=== PATIENT | female | born 1950 | race Caucasian/White ===

== ENCOUNTER 2023-02-27 07:07 | Observation (INO) ==
--- NOTE | 2023-02-05 12:39 | PAT Medication Instructions ---
Medication Instructions Date of Service February 05, 2023 Home Medications aspirin 81 mg capsule 81 mg PO QAM azathioprine 50 mg tablet 50 mg PO QAM calcium carb 333 mg-vit D3 133 unit-mag ox 133 mg-zinc oxide 5 mg tab 3 tab PO HS celecoxib 100 mg capsule 100 mg PO BID cholecalciferol (vitamin D3) 25 mcg (1,000 unit) tablet (Vitamin D3) 25 mcg PO QAM cyanocobalamin (vitamin B-12) 2,500 mcg sublingual tablet (Vitamin B-12) 2,500 mcg sublingual QAM potassium 99 mg tablet 99 mg PO QAM pyridoxine (vitamin B6) 100 mg tablet (Vitamin B-6) 100 mg PO QAM ASK your surgeon for instructions celecoxib 100 mg capsule 100 mg PO BID ASK your prescriber and surgeon azathioprine 50 mg tablet 50 mg PO QAM DO NOT take the morning of surgery cholecalciferol (vitamin D3) 25 mcg (1,000 unit) tablet (Vitamin D3) 25 mcg PO QAM cyanocobalamin (vitamin B-12) 2,500 mcg sublingual tablet (Vitamin B-12) 2,500 mcg sublingual QAM potassium 99 mg tablet 99 mg PO QAM pyridoxine (vitamin B6) 100 mg tablet (Vitamin B-6) 100 mg PO QAM Take morning of surgery With a small sip of water, OTHERWISE NOTHING TO EAT OR DRINK AFTER MIDNIGHT: aspirin 81 mg capsule 81 mg PO QAM (continue as normal unless told otherwise by surgeon) Take evening before surgery calcium carb 333 mg-vit D3 133 unit-mag ox 133 mg-zinc oxide 5 mg tab 3 tab PO HS Other Notes If you have any questions please call us at [phone] or [phone] or [phone] or [phone]
--- NOTE | 2023-02-07 12:10 | Anesthesiology Consultation ---
Date of Service February 07, 2023 Assessment & Plan (1) Encounter for pre-operative examination: Chart Review Chart Review: Acceptable Risk for Surgery (pending response to optimization note re: updating ECHO for murmur and leukoctyosis ) and Patient NOT seen in Pre Admission Testing - Send optimization note to PCP re: ECHO/murmur and leukocytosis () Pt currently scheduled as 23 hours observation. If surgeon decides to change pa tient to Same Day Joint, patient would be acceptable risk for TKA, pending patient is motivated, has good support and surgeon's office completes [facility] Program preop requirements. Per PAT appt on 02/07/23, patient denies any recent travel or large group activities. Pt is vaccinated for Covid. Will leave to surgeon's discretion if preop Covid testing needed. Educated on importance of using Covid precautions one week prior to surgery Teaching & Discussion Pre-Anesthesia Teaching/Discussion Notes: Instructed NPO after midnight before surgery,except medications with 15 cc of water. Medication instructions provided according to the PAT guidelines. History Surgery Operation Date: 02/27/23 12:40 Proposed Procedures p Right Total Knee Arthroplasty, Possible Lateral Release - Russell Londono MD Height/Weight Height: 4 ft 9 in Weight: 78.2 kg Allergies Allergy/AdvReac Type Severity Reaction Status Date / Time No Known Drug Allergies Allergy Unknown NONE Verified 02/05/23 11:46 Medications Home Medications Medication Instructions Recorded Confirmed Last Taken aspirin 81 mg capsule 81 mg PO QAM 02/05/23 02/05/23 Unknown azathioprine 50 mg tablet 50 mg PO QAM 02/05/23 02/05/23 Unknown calcium carb 333 mg-vit D3 133 3 tab PO HS 02/05/23 02/05/23 Unknown unit-mag ox 133 mg-zinc oxide 5 mg tab celecoxib 100 mg capsule 100 mg PO BID 02/05/23 02/05/23 Unknown cholecalciferol (vitamin D3) 25 25 mcg PO QAM 02/05/23 02/05/23 Unknown mcg (1,000 unit) tablet (Vitamin D3) cyanocobalamin (vitamin B-12) 2,500 mcg sublingual QAM 02/05/23 02/05/23 Unknown 2,500 mcg sublingual tablet (Vitamin B-12) potassium 99 mg tablet 99 mg PO QAM 02/05/23 02/05/23 Unknown pyridoxine (vitamin B6) 100 mg 100 mg PO QAM 02/05/23 02/05/23 Unknown tablet (Vitamin B-6) Past Medical History Medical History Autoimmune hepatitis reason for azathioprine Follows with specialist in [place] - no current issues CLL (chronic lymphocytic leukemia) Dx'ed 2010- under observation Dr. Winters History of kidney stones No current issues Exercise / Class Metabolic Activity II 4-5 Yardwork/Stairs/Walk up hill (one flight of stairs - no chest pain or SOB ) Past Family History Family History Other No family history of adverse response to anesthesia Past Surgical History Surgical History History of bilateral tubal ligation History of colonoscopy History of dilatation and curettage History of repair of right rotator cuff History of right shoulder replacement History of tooth extraction Past Anesthesia History No Hx of Anesthesia Complications and No Family Hx of Anesthesia Complications History of PONV No Hx of PONV and No Hx of Motion Sickness Social History Smoking Status: Never smoker Do You Dip or Chew Tobacco: No Hx Alcohol Use: No Hx Substance Use: No substance use type: does not use Review of Systems Snoring - no witnessed apnea - no hx of sleep study Patient denies chest pain, shortness of breath, dyspnea on exertion, reflux, cough, wheezing, palpitations. No hx of seizures, stroke, CA. No hx of blood clots or blood transfusions Physical Exam Vital Signs VITALS BP 148/71 P 92 TEMP 98.3 SP02 95% RESP 16 Constitutional no acute distress ENMT Mouth: no TMJ clicking Thyromental Distance: > or= 3.5 Finger Breadths (3.5) Mallampati Class: II Missing molars Neck + limited neck extension (minimal) Respiratory normal respiratory effort; no respiratory distress Auscultation: lungs clear to auscultation bilaterally; no wheezes Cardiovascular Rate/Rhythm: regular rate and regular rhythm Heart Sounds: + murmur (II/ murmur ) Vessels: no carotid bruit Musculoskeletal Spine: no pain with cervical ROM Extremities: extremities normal to inspection Psychiatric Orientation: alert Lab Results Anesthesia Preop Results Results Anesthesia Widget: WBC 49.62 K/ul (4.8-10.8) H* 02/07/23 Hgb 13.7 g/dl (12.0-16.0) 02/07/23 Hct 41.3 % (37.0-47.0) 02/07/23 Plt 229 K/uL (130-400) 02/07/23 Na 141 mmol/L (136-145) 02/07/23 K 4.8 mmol/L (3.5-5.1) 02/07/23 Cl 104 mmol/L (98-107) 02/07/23 CO2 28 mmol/L (21-32) 02/07/23 BUN 13 mg/dl (6-23) 02/07/23 Creat 0.73 mg/dl (0.6-1.2) 02/07/23 Glucose Level 138 mg/dl (70-99(Fasting)) H 02/07/23 PT 10.3 Seconds (9.0-12.0) 02/07/23 PTT 24.2 Seconds (21.0-31.0) 02/07/23 INR 0.9 (0.9-1.1) 02/07/23 Urine Color Yellow 02/07/23 Urine Appearance Clear (Clear) 02/07/23 Urine pH 7.5 (4.5-7.5) 02/07/23 Urine Specific [place] 1.006 (1.000-1.030) 02/07/23 Urine Protein Negative (Negative) 02/07/23 Urine Glucose (UA) Negative (Negative) 02/07/23 Urine Ketones Negative (Negative) 02/07/23 Urine Blood Negative (Negative) 02/07/23 Urine Nitrite Negative (Negative) 02/07/23 Urine Bilirubin Negative (Negative) 02/07/23 Urine Urobilinogen Negative (Negative) 02/07/23 Urine Leukocyte Esterase Negative (Negative) 02/07/23 Blood Type O Positive 02/07/23 Antibody Screen NEGATIVE 02/07/23 Testing Laboratory Results Leukocytosis - hx of CLL 02/07/23= AST: 25 ALT: 21 ALK PHOS: 77 Electrocardiogram Date: 02/07/23 Findings: + NSR @ (88bpm ) Normal EKG per cardio Chest X-Ray Date: 02/07/23 FINDINGS: Incidental note is made of a right shoulder arthroplasty and dextroscoliosis of the thoracic spine. Lung volumes are normal. Lungs are clear. There is no pneumothorax or pleural effusion. Cardiac size is normal. Mediastinal contours are normal. There is no evidence for pulmonary edema. IMPRESSION: No acute cardiopulmonary findings. COVID-19 Risk Screen Screening Information COVID-19 Screen Date: 02/07/23 Exposure 21 Days Family/Household +COVID Last 21 Days: No Exposure 10 Days Any COVID Exposure Last 10 Days: No Symptoms Last 10 Days Experienced COVID Sx Last 10 Days: No + COVID 0-90 Days COVID + in Last 0-90 Days: No Risk Plan COVID Risk Plan: No Risk Identified Patient Education COVID Preop Screening Education Complete: Yes
--- NOTE | 2023-02-17 08:42 | History & Physical Report ---
Date of Service February 17, 2023 Assessment & Plan (1) Primary osteoarthritis of right knee: Plan: Treatment options discussed with the patient. She has failed conservative measures and would like to proceed with surgical invention. Risks, benefits and alternatives to surgery including but not limited to infection, DVT, pain, stiffness, need for revision surgery, damage to blood vessels, damage to nerves, PE, , were discussed with the patient and they wish to proceed. Plan for right total knee arthroplasty scheduled for February 27 at [facility] with Dr. Londono. We we will plan on aspirin 81 mg twice daily for 1 month postop for DVT prophylaxis. Plan outpatient physical therapy. Questions answered. Patient will follow-up postop. History of Present Illness Chief Complaint: Right knee pain Primary Care Provider: NO PCP 72-year-old female with past medical history significant for CLL who presents with ongoing right knee pain. Pain is interfering with patient's daily activities. She has failed conservative measures and would like to proceed with surgical invention. Patient denies headaches, sweats, fevers, chills, double vision, blurred vision, cough, sore throat, dysphagia, chest pain, sob, wheezing, n/v/d/c, numbness, tingling, fatigue, urinary symptoms, mood disorders. ROS positive for right knee pain and stiffness. Allergies Allergy/AdvReac Type Severity Reaction Status Date / Time No Known Drug Allergies Allergy Unknown NONE Verified 02/05/23 11:46 Home Medications Medication Instructions Recorded Confirmed Type aspirin 81 mg capsule 81 mg PO QAM 02/05/23 02/05/23 History azathioprine 50 mg tablet 50 mg PO QAM 02/05/23 02/05/23 History calcium carb 333 mg-vit D3 133 3 tab PO HS 02/05/23 02/05/23 History unit-mag ox 133 mg-zinc oxide 5 mg tab celecoxib 100 mg capsule 100 mg PO BID 02/05/23 02/05/23 History cholecalciferol (vitamin D3) 25 25 mcg PO QAM 02/05/23 02/05/23 History mcg (1,000 unit) tablet (Vitamin D3) cyanocobalamin (vitamin B-12) 2,500 mcg sublingual QAM 02/05/23 02/05/23 History 2,500 mcg sublingual tablet (Vitamin B-12) potassium 99 mg tablet 99 mg PO QAM 02/05/23 02/05/23 History pyridoxine (vitamin B6) 100 mg 100 mg PO QAM 02/05/23 02/05/23 History tablet (Vitamin B-6) Past Med/Surg History Medical History Autoimmune hepatitis reason for azathioprine Follows with specialist in [place] - no current issues CLL (chronic lymphocytic leukemia) Dx'ed 2010- under observation Dr. Winters History of kidney stones No current issues Surgical History History of bilateral tubal ligation History of colonoscopy History of dilatation and curettage History of repair of right rotator cuff History of right shoulder replacement History of tooth extraction Family History Other No family history of adverse response to anesthesia Social History Smoking Status: Never smoker Second Hand Exposure: No; Do You Dip or Chew Tobacco: No; Hx Alcohol Use: No Hx Substance Use: No Preferred Language: Korean Communication Ability: Effective Transportation Engineering Technician Required: No Beliefs That Will Affect Care: None Current Living Situation: Spouse Feels Safe at Home: Yes Assistive Devices: Glasses Review of Systems All systems reviewed & are unremarkable except as noted in HPI & below Physical Exam Constitutional: well developed and well nourished; no acute distress Eyes: PERRL, conjunctivae normal, anicteric sclerae ENMT: external ear and nose normal, oropharynx normal Neck: trachea midline, no thyromegaly Respiratory: normal respiratory effort, lungs clear to auscultation Cardiovascular: RRR, no murmur, no edema Musculoskeletal: Right knee: Range of motion is 0-120 degrees. There is a valgus alignment. Moderate knee effusion. Tenderness to lateral joint line and lateral patellar facet. Conchita's is guarded. Stable valgus and varus stress test. Skin: no rashes, warm and dry Neurologic: patellar DTR's 2+ bilat, sensation intact Psychiatric: A+Ox3, euthymic affect Results & Data Diagnostic Findings Right knee radiographs demonstrate significant arthritis with [id number] lateral patellofemoral compartment with lateral patellar tilt. There is a valgus alignment to her knee with moderate lateral compartment arthritic changes. There is periarticular osteophytes.
[~2023-02-27 07:07] MED LIST: ACETAMINOPHEN 500 MG TAB PO SCH; BUPIVACAINE 0.25% PF 30 ML VIAL ONE; BUPIVACAINE 0.5 % 5 MG/1 ML PF 10ML VIAL ONE; CeleBREX 200 MG CAP PO SCH; DEXAMETHASONE SOD INJ 4 MG/ML VIAL ONE; EPINEPHrine INJ 1 MG/ML AMP ONE; FAMOTIDINE 20 MG TAB PO SCH; GABAPENTIN 300 MG CAP PO SCH; LR 15ML/HR IV SCH; METOCLOPRAMIDE HCL 10 MG TABLET PO SCH; ROPIVACAINE 0.5% HCL/PF 150 MG, BUPIVACAINE 0.75% MPF 20 ML, EPINEPHrine 30MG/30ML (OR ... INSTIL SCH; TRANEXAMIC ACID 1,000 MG **IV Intra-op IV SCH; TRANEXAMIC ACID 1,000 MG **IV Pre-op IV SCH; ceFAZolin 2000MG 2,000 MG/15 ML SYR IV SCH; dexAMETHasone 4 MG TAB PO SCH
[2023-02-27] MEDS ORDERED: LACTATED RINGER'S 1,000 ML IV SCH (08:00)
--- NOTE | 2023-02-27 08:45 | History & Physical Bridge Note ---
Date of Service February 27, 2023 History & Physical Bridge Note I have examined the patient, reviewed the History & Physical and in the interval since the performance of the History & Physical I have noted the following changes of clinical significance: no changes noted
[2023-02-27] MEDS ORDERED: ATROPINE SULFATE 0.1 MG/ML 10ML SYR IV PRN (09:14)
[2023-02-27] MEDS ORDERED: ePHEDrine sulfate 50 MG/ML AMP IV PRN (09:14)
[2023-02-27] MEDS ORDERED: fentaNYL citrate PF 100 MCG/2 ML VIAL IV PRN (09:14)
[2023-02-27] MEDS ORDERED: ONDANSETRON INJ 2 MG/ML 2 ML VIAL IV PRN ×2 (09:14→13:32)
[2023-02-27] MEDS ORDERED: PROMETHAZINE HCL 6.25 MG in SODIUM CHLORIDE 0.9% 50 ML IV PRN (09:14)
[2023-02-27] MEDS ORDERED: fentaNYL citrate PF 100 MCG/2 ML VIAL ONE (09:40)
[2023-02-27] MEDS ORDERED: ORTHO JOINT ANESTHETIC ONE (09:40)
[2023-02-27] MEDS ORDERED: MIDAZOLAM HCL 1 MG/ML 2ML VIAL ONE (09:40)
[2023-02-27] MEDS ORDERED: KETAMINE 50 MG/5 ML SYRINGE ONE (10:22)
[2023-02-27] MEDS ORDERED: PROPOFOL IV EMULSION 10 MG/ML 100 ML VIAL IV ONE (12:00)
[2023-02-27] MEDS ORDERED: DEXAMETHASONE SOD INJ 4 MG/ML VIAL ONE (12:00)
[2023-02-27] MEDS ORDERED: ONDANSETRON INJ 2 MG/ML 2 ML VIAL ONE (12:00)
[2023-02-27] MEDS ORDERED: ePHEDrine sulfate 50 MG/ML SYR ONE (12:01)
--- NOTE | 2023-02-27 12:07 | Operative Report ---
Post Operative Report Pre & Post Diagnosis Operation Date: 02/27/23 09:50 Pre-Op Diagnosis: Right Knee Osteoarthritis, patellofemoral malalignment Post-Op Diagnosis: Right knee osteoarthritis, patellofemoral malalignment I identified the patient and participated in the time-out.: Yes Procedure Operation Date: 02/27/23 09:50 Actual Procedures p Right Total Knee Arthroplasty, Lateral Release(Right), shamika Acticoat superficial wound VAC- Russell Londono MD Surgeon Russell Londono MD Senior Foreman Zion WOODWARD Estimated Blood Loss 5 Findings Consistent with Post-Op Diagnosis Specimens Bone cuts Drains 2 Hemovac Anesthesia Type MAC Spinal Regional Complications none Disposition Disposition: Recovery Room Indications 72-year-old female with bilateral end-stage osteoarthritis of the patellofemoral joint but also has some other tricompartmental changes. She has patellofemoral malalignment with lateral tracking patella [id number] some bone loss patella Description of Procedure Patient was taken to the operating room placed supine on the operating table and anesthetized under spinal MAC regional block anesthesia. Exam under anesthesia demonstrated some minor hyperextension otherwise full range of motion no instability but a moderately large effusion and lateral tracking patella patellofemoral crepitation which is marked. A pneumatic tourniquet was placed about the thigh of the right lower extremity. The right lower extremity was prepped and draped in usual sterile fashion. The leg was elevated exsanguinated with an Esmarch bandage and the pneumatic tourniquet was raised to 325 mm mercury. An anterior incision was made across the right knee. The skin was incised longitudinally subcutaneous flaps were elevated and an incision was made through the medial retinaculum extending up into the mid third of the quadriceps tendon and extended down to the medial tibial tubercle. Intra-articular findings demonstrated tricompartmental osteoarthritis [id number] patellofemoral joint with lateral alignment of the patella lateral tracking the patella. There was degeneration of the ACL but intact ACL. There was degenerative lateral meniscus tear evidence of calcification of the lateral meniscus probable calcium pyrophosphate disease versus steroid deposition. There was grade 4 lesion of the medial femoral condyle grade 3 lesion lateral femoral condyle hypoplastic lateral femoral condyle. There was bone loss of the patella with bone loss along the lateral facet with a relatively thinner lateral facet than the medial side due to the bone wear. The knee was exposed by excising the infrapatellar fat pad, excising the meniscal remnants and anterior cruciate ligament. Any inflamed synovial tissue was resected. The fat pad over the anterior femur was resected for placement of the component in that area. The lateral synovial bands were released. The femur was exposed. The custom femoral cutting block was pinned in position. The distal femoral cutting block was applied. The distal femoral cut was made with the oscillating saw. The size 7, 4-in-1 cutting block was placed. The anterior and posterior chamfer cuts were made. The knee was extended and a subperiosteal peel lateral release was performed around the patella. The patella width was measured and width was reproduced using freehand cut technique. The 29 millimeter symmetrical patella was used. 3 drill holes are made for the pegs. The tibia was exposed. A custom tibial cutting block was positioned and drill holes were made for the cutting guide. Cutting guide was placed and the proximal cut was made with the oscillating saw. All osteophytes were resected. The lamina machine heel seat fitter was used to assess ligamentous balance and the ligaments were balanced in extension and flexion. No releases were required. The tibia was reexposed and measured for a size C tibial component. This was externally rotated in line with the tibial tubercle and the fixation pins were drilled. The proximal tibia was fashioned with the drill and punch. The size 7 CR femoral trial was inserted. The trial MC inserts were used. The 10 mm insert gave balanced ligaments through full range of motion. The patella tracked centrally tracking until this reason we did a lateral release leaving the synovium intact. In maximum flexion there was some late slight lift off and tilting. And preserving the geniculate vessels. The trials were removed. The orthomix anesthetic cocktail was injected per protocol. The knee was then copiously irrigated with pulsatile lavage saline solution. The final components were cemented with Refobacin bone cement. The final components were Christiano persona 7 narrow CR right femoral component, C righ t tibial component, 10 mm MC tibial polyethylene and a 29 mm symmetrical all polyethylene patella. After the cement cured with the knee in full extension the Betadine soak was used per protocol. The knee joint was copiously irrigated with pulsatile lavage saline solution . 2 drains were brought out laterally and connected to a Hemovac. The quadriceps tendon and medial retinaculum were closed with interrupted [id number] #1 Vicryl sutures. The knee was taken through a full range of motion which was 0 through 130 degrees and the repair was secure. The subcutaneous tissues were closed with 2-0 Vicryl sutures and skin was closed with harman.A Shamika and Acticoat superficial wound VAC was applied and the patient tolerated the procedure well. Zion WOODWARD my physician assistant terminal manager participated as family medicine physician assistant and was an integral part in all aspects of the procedure, he assisted in soft tissue retraction, instrument management ,leg positioning, the closure, application superficial wound VAC and will participate in the postoperative care of the patient. I attest to the content of the Intraoperative Record and any orders documented therein. Any exceptions are noted below.
[2023-02-27] MEDS ORDERED: METOPROLOL TARTRATE 1 MG/ML VIAL IV ONE (12:19)
--- NOTE | 2023-02-27 13:07 | XRay Report ---
XR knee RT 1 or 2V routine CLINICAL HISTORY: Postoperative evaluation. COMPARISON: None FINDINGS: Alignment of the total right knee arthroplasty is anatomic. There is no periprosthetic fra cture or unexpected radiopaque foreign body. There are drains and skin harman. IMPRESSION: Expected findings following total right knee arthroplasty. ACT 112: Negative or not required by law. Electronically signed by: Amando Riley M.D. 02/27/2023 1:06 PM
[2023-02-27] MEDS ORDERED: MAGNESIUM HYDROXIDE SUSP 30 ML UDC PO PRN (13:32)
[2023-02-27] MEDS ORDERED: diphenhydrAMINE 50 MG/ML VIAL IV PRN (13:32)
[2023-02-27] MEDS ORDERED: KETOROLAC TROMETHAMINE 15 MG/ML VIAL IV PRN (13:32)
[2023-02-27] MEDS ORDERED: NALOXONE HCL 0.4 MG/1 ML VIAL/CARP IV PRN (13:32)
[2023-02-27] MEDS ORDERED: bisacodyL 10 MG SUPP PR PRN (13:32)
[2023-02-27] MEDS ORDERED: HYDROmorphone INJ 0.5 MG/0.5 ML SYR IV PRN (13:32)
[2023-02-27] MEDS: ACETAMINOPHEN 500 MG TAB PO SCH ×2 (14:34→20:43)
[2023-02-27] MEDS: SODIUM CHLORIDE 0.9% 1000ML 1,000 ML IV SCH (14:34)
--- NOTE | 2023-02-27 15:43 | Anesthesiology Progress Note ---
Date of Service February 27, 2023 Anesthesia Post Procedure Vital Signs Vital Signs: Temp Pulse Pulse Resp BP Pulse Ox O2 Del Method 02/27/23 14:32 36.4 C L 98 H 16 145/77 H 96 Room Air 02/27/23 13:59 36.3 C L 97 H 18 137/77 96 Room Air 02/27/23 13:33 36.3 C L 92 H 18 137/80 97 Room Air 02/27/23 13:20 91 H 18 134/78 95 Room Air 02/27/23 13:10 36.4 C L 92 H 18 146/76 H 93 Room Air 02/27/23 12:50 91 H 16 143/72 H 95 Room Air 02/27/23 12:40 92 H 18 139/70 93 Room Air 02/27/23 13:00 89 20 119/67 96 Room Air 02/27/23 12:30 96 H 20 142/72 H 95 Room Air 02/27/23 12:27 36.1 C L 96 H 14 138/78 95 Room Air 02/27/23 07:49 36.9 C 93 H 18 177/87 H 97 Room Air Pain Intensity Back: Pain Intensity: 2 Right Knee: Pain Intensity: 0 Transfer of Care Handoff Completed per policy Notes Mental Status: alert / awake / arousable Patient Amnestic to Procedure: Yes Nausea / Vomiting: adequately controlled Pain: adequately controlled Airway Patency, RR, SpO2: stable & adequate BP & HR: stable & adequate Hydration State: stable & adequate Anesthetic Complications: no major complications apparent
[2023-02-27] MEDS: oxyCODONE HCL IR 5 MG TAB (IMMEDIATE RELEASE) PO PRN ×2 (15:56→21:29)
--- NOTE | 2023-02-27 17:25 | Hospitalist Consultation ---
Date of Consultation February 27, 2023 Assessment & Plan (1) Status post right knee replacement: -Currently stable -Pain control, perioperative abx, DVT PPX, and IV fluids per the primary team -Agree with am labs, we will follow -Adding daily famotidine for stress ulcer PPX -Thank you for allowing us to participate in the care of this patient, please reach out with any questions or concerns -Medicine will continue to follow (2) Autoimmune hepatitis: -Follows with registered dental hygienist in [place] Q6M -Continue daily Azathioprine tomorrow (3) CLL (chronic lymphocytic leukemia): -Has been stable, currently monitoring with outpatient labs -Follow am CBC Plan The patient was discussed with Dr. Mario at the time of the consult Supervising Physician Co-Signing Physician Notes I personally saw and examined the patient. I verified all rosado points and agree with Han Evans PA-C with the following exceptions and/or additions: 72 year old POD#0 right TKA. EBL 5ml. O/E HS RRR, no murmurs, Chest CTAB, Abdo SNT, NV intact distal to operation site. A/P VTE/Pain/bowel management per primary orthopedic team Noted not prescribed her azathioprine. No medical reason to hold this, can be restarted when ok by surgical team. History of Present Illness Reason for Consultation: Post-op medical management Requesting Physician: Russell Londono MD Attending Physician: Dr. Antwon Mario History of Present Illness Mignon is a 72 year old female with a PMH significant for CLL currently on observation, Autoimmune hepatitis (on Azathioprine), and arthritis who presented to the [facility] OR on 02/27/23 for elective Right Total Knee Arthroplasty with Dr. Londono. Per the operative report, anesthesia was listed as "MAC spinal regional", EBL was listed as 5 cc, and there were no reported intraoperative complications. At the time of the exam the patient was sitting in her bedside recliner, finishing dinner. She states that she is doing "great". She has no pain in the RLE right now and was able to eat without issue. She confirms that she is on the Azathioprine for Autoimmune hepatitis and follows with her Applications Instructor q6m in [place]. She denies recent fever, chills, chest pain, SOB, abd pain, nausea, vomiting, diarrhea, dysuria, hematuria, melena, and recent trauma. Please refer to Dr. Mario's attestation for any changes to the treatment plan Allergies Allergy/AdvReac Type Severity Reaction Status Date / Time No Known Drug Allergies Allergy Unknown NONE Verified 02/27/23 07:47 Home Medications Medication Instructions Recorded Confirmed Type aspirin 81 mg capsule 81 mg PO QAM 02/05/23 02/27/23 History azathioprine 50 mg tablet (Imuran) 50 mg PO QAM 02/05/23 02/27/23 History calcium carb 333 mg-vit D3 133 3 tab PO HS 02/05/23 02/27/23 History unit-mag ox 133 mg-zinc oxide 5 mg tab celecoxib 100 mg capsule (Celebrex) 100 mg PO BID 02/05/23 02/27/23 History cholecalciferol (vitamin D3) 25 25 mcg PO QAM 02/05/23 02/27/23 History mcg (1,000 unit) tablet (Vitamin D3) cyanocobalamin (vitamin B-12) 2,500 mcg sublingual QA 02/05/23 02/27/23 History 2,500 mcg sublingual tablet (Vitamin B-12) potassium 99 mg tablet 99 mg PO QA 02/05/23 02/27/23 History pyridoxine (vitamin B6) 100 mg 100 mg PO [facility] 02/05/23 02/27/23 History tablet (Vitamin B-6) acetaminophen 500 mg tablet 1,000 mg PO Q8 14 days #84 tabs 02/27/23 Rx (Tylenol Extra Strength) aspirin 81 mg tablet,delayed 81 mg PO BID 30 days #60 tabs 02/27/23 Rx release polyethylene glycol 3350 17 gram 17 g PO DAILY PRN constipation #5 02/27/23 Rx oral powder packet (Miralax) ea oxycodone 5 mg tablet 5 mg PO Q4H PRN pain #30 tabs 02/28/23 Rx Patient History Medical History (Updated 02/27/23 @ 17:47 by Han Evans PA-C) Autoimmune hepatitis reason for azathioprine Follows with specialist in [place] - no current issues CLL (chronic lymphocytic leukemia) Dx'ed 2010- under observation Dr. Winters History of kidney stones No current issues Surgical History (Updated 02/27/23 @ 17:47 by Han Evans PA-C) History of bilateral tubal ligation History of colonoscopy History of dilatation and curettage History of repair of right rotator cuff History of right shoulder replacement History of tooth extraction Family History Other No family history of adverse response to anesthesia Social History Smoking Status: Never smoker Second Hand Exposure: No; Do You Dip or Chew Tobacco: No; Tobacco Cessation Education Requested by Patient: No Hx Alcohol Use: No Hx Substance Use: No Preferred Language: Omani Communication Ability: Effective Account Services Specialist Required: No Beliefs That Will Affect Care: None Current Living Situation: Spouse Other Information That Helps Us Care for You: No Feels Safe at Home: Yes Safety Concerns: Feels Safe At This Time Assistive Devices: Glasses Physical Exam Physical Exam: Physical Exam: General: In no acute distress, stated age, well-nourished, good hygiene HEENT: Normocephalic, atraumatic, no scleral icterus, pupils around round, symmetrical, and reactive to light, moist mucus membranes, trachea midline, no thyromegaly Chest/Pulm: No respiratory distress, symmetrical chest expansion, clear breath sounds throughout Cardiac: RRR, no murmurs noted Abdomen: Negative for ascites and bruising, normoactive bowel sounds, soft, non-tender to palpation throughout Musculoskeletal: RLE currently wrapped, with drain in place. Patient with intact sensation and motor function in the BL feet Extremities: Radial, dorsalis pedis, and posterior tibial pulses are intact and symmetrical, no edema noted in the BL LE's Skin: Warm, dry, no rashes , lesions, or scars noted Neuro: Alert and oriented to person, place, month, year, and president, no focal defects, no tremors noted Psych: No acute distress, calm and cooperative during the exam Results & Data Results & Data Vital Signs (Past 12 Hours) Vital Signs Temp Pulse Pulse Resp BP Pulse Ox O2 Del Method 02/27/23 16:30 36.5 C 101 H 16 111/71 96 Room Air 02/27/23 15:30 36.5 C 101 H 18 156/66 H 97 Room Air 02/27/23 14:32 36.4 C L 98 H 16 145/77 H 96 Room Air 02/27/23 13:59 36.3 C L 97 H 18 137/77 96 Room Air 02/27/23 13:33 36.3 C L 92 H 18 137/80 97 Room Air 02/27/23 13:20 91 H 18 134/78 95 Room Air 02/27/23 13:10 36.4 C L 92 H 18 146/76 H 93 Room Air 02/27/23 12:50 91 H 16 143/72 H 95 Room Air 02/27/23 12:40 92 H 18 139/70 93 Room Air 02/27/23 13:00 89 20 119/67 96 Room Air 02/27/23 12:30 96 H 20 142/72 H 95 Room Air 02/27/23 12:27 36.1 C L 96 H 14 138/78 95 Room Air 02/27/23 07:49 36.9 C 93 H 18 177/87 H 97 Room Air Diagnostic Findings Knee X-Ray 02/27/23 12:34 XR knee RT 1 or 2V routine CLINICAL HISTORY: Postoperative evaluation. COMPARISON: None FINDINGS: Alignment of the total right knee arthroplasty is anatomic. There is no periprosthetic fracture or unexpected radiopaque foreign body. There are drains and skin harman. IMPRESSION: Expected findings following total right knee arthroplasty. ACT 112: Negative or not required by law. Electronically signed by: Amando Riley M.D. 02/27/2023 1:06 PM PG Care Time/CCT Total # of Minutes Spent Total Time Spent with Patient: Total time spent is greater than 50% in coordination of care (as documented) at patient's floor/unit and/or counseling patient: Coding [place] [address] IN/OBS CONSULT LVL 3,45M Patient Type Established Medical Decision Making Moderate Complexity Diagnoses Status post right knee replacement Z96.651 Autoimmune hepatitis K75.4 CLL (chronic lymphocytic leukemia) C91.10
[2023-02-27] MEDS: ceFAZolin 2000MG 2,000 MG/15 ML SYR IV SCH (18:20)
[2023-02-27] MEDS: DOCUSATE SODIUM 100 MG CAP PO SCH (20:43)
[2023-02-27] MEDS: ASPIRIN 81 MG ECTAB PO SCH (20:43)
[2023-02-27] MEDS ORDERED: SENNA 8.6 MG TAB PO SCH (21:00)
[2023-02-28] MEDS: ceFAZolin 2000MG 2,000 MG/15 ML SYR IV SCH (02:10)
[2023-02-28] MEDS: SODIUM CHLORIDE 0.9% 1000ML 1,000 ML IV SCH (02:39)
[2023-02-28] MEDS: ACETAMINOPHEN 500 MG TAB PO SCH ×2 (05:28→11:08)
--- NOTE | 2023-02-28 06:31 | Orthopedic Progress Note ---
Date of Service February 28, 2023 Assessment & Plan (1) Primary osteoarthritis of right knee: Plan: Postop day 1 status post right total knee arthroplasty. PT/OT protocols. Weightbearing as tolerated. DVT prophylaxis-aspirin p.o. twice daily, SCDs, LULU ta. Pain management as written. A.m. labs pending DC planning-patient is planning for outpatient PT upon discharge. Admission and Anticipated Discharge Date Admission Date: February 27, 2023 Subjective Postop day 1 Patient sitting in chair at the bedside. No complaints this morning. Pain is controlled. She denies any shortness of breath, chest pain, lightheadedness. She is hoping to go home today. Physical Exam Physical Exam: Dressings are clean, dry, and intact. Calves are soft nontender. Neurovascular is intact. Toes are mobile. She has good dorsiflexion and plantarflexion of the right foot. Hemovac drainage is minimal Results & Data Vital Signs (Past 12 Hours) Vital Signs Temp Pulse Resp BP Pulse Ox O2 Del Method 02/28/23 05:49 36.5 C 91 H 16 120/73 98 Room Air 02/28/23 03:58 36.4 C L 92 H 16 115/66 97 Room Air 02/27/23 21:30 Room Air 02/27/23 22:58 36.4 C L 93 H 16 105/65 97 Room Air 02/27/23 20:01 36.5 C 97 H 16 126/75 96 Room Air
[2023-02-28 06:41] LABS: Hematocrit (blood only) 34.4 % (37.0-47.0); Hemoglobin 10.8 g/dl (12.0-16.0); Mean Corpuscular Hemoglobin 28.4 pg (25.0-34.0); Mean Corpuscular Hgb Conc 31.4 g/dL (32.0-36.0); Mean Corpuscular Volume 90.5 fL (80.0-100.0); Platelet Count 228 K/uL (130-400); RDW Coefficient of Variation 14.5 % (11.5-14.5); RDW Standard Deviation 46.9 fL (36.4-46.3); White Blood Count 83.16 K/ul (4.8-10.8)
[2023-02-28 06:42] LABS: BUN Creatinine Ratio 27.2 (10-20); Calcium 9.4 mg/dl (8.6-10.3); Creatinine Clr Calc Pharmacy 54.1 ml/min; Est GFR (African American) 84.1 ml/min; Est GFR (Non-African American) 72.6 ml/min; Potassium 5.2 mmol/L (3.5-5.1)
[2023-02-28] MEDS: oxyCODONE HCL IR 5 MG TAB (IMMEDIATE RELEASE) PO PRN ×2 (07:03→11:07)
[2023-02-28] MEDS: DOCUSATE SODIUM 100 MG CAP PO SCH (08:11)
--- NOTE | 2023-02-28 08:36 | Hospitalist Progress Note ---
Date of Service February 28, 2023 Assessment & Plan (1) Status post right knee replacement: Plan: POD#1 s/p Right Total Knee Arthroplasty, Lateral Release(Right), pauline Acticoat superficial wound VAC- Russell Londono MD. EBL 5cc Pain control/bowel regimen/PT/OT per primary service DVT proph: ASA 81mg BID WBC elevation--was given 8mg dexamathasone w/ surgery. no infectious symptoms reported and notes she does get elevations w/ stress/surgery/steroids. AFEBRILE BMP reviewed-- kidney function stable -- not on any LUCIA/ARB but K 5.2. Home meds list PO potassium -- would STOP at d/c and f/u PCP Patient wanting to go home today -- discussed given stability/no infecitous symptoms and pain controlled/worked with therapy ok from medicine to dc today (2) Autoimmune hepatitis: Plan: -Follows with headlight assembler in [place] Q6M -Continue daily Azathioprine Outpatient follow up (3) CLL (chronic lymphocytic leukemia): Plan: -Has been stable, currently monitoring with outpatient labs WBC elevation as above, no signs/symptoms infection, likely from steroids Outpt f/u (4) Hyperkalemia: Plan: mild elevation to 5.2 on AM labs. Not on LUCIA/ARB, on PO potassium for jose horses (w/ Mag/zinc) Discussed STOPPING oral K at d/c. No CP/GURU/palpitations/arrtyhmia noted Outpt f/u PCP Plan Hospitalist service will sign off. Please call with any questions/concerns. Admission and Anticipated Discharge Date Admission Date: February 27, 2023 Supervising Physician Co-Signing Physician Notes The patient was not seen by me. The chart was reviewed. Case discussed with CRISSY Dickinson. Agree with assessment and plan Subjective Evaluated this morning, doing well. Pain, controlled with order medications but would like something as just got done a lot of walking. No fevers/chills, chest pain, shortness of breath, abdominal pain, nausea, dysuria. WBC elevation, she notes this happens a lot with stress/surgery. Excited to be more active/weight loss. Had been doing about [address] steps for wedding last year but w/ knee pain has been limited and she is hopeful to get back on track. Hopeful for dc today. Discussed elevated K - she has been taking PO K/mag/zinc before bed with fluids for jose horses which has been helping. Discussed STOPPING oral K and can continue Mag/zinc. Messaged ortho ok for d/c. Questions/concerns addressed at this time. Review of Systems Review of Systems: All systems reviewed & are unremarkable except as noted in HPI & below Physical Exam Physical Exam: General: WD/WN female dressing up in chair, anxious for DC, NAD HEENT: head normocephalic, atraumatic, mmm, trachea midline Resp: CTA, no w/c, on room air CV: RRR, no significant m/r/g, pulses palpable,no calf tenderness GI: +BS, soft/NT MSK/Neuro: dressing/wrap to RIGHT knee c/d/i strength intact bilaterally, sensation intact hemovac scant drainage Psych: AOx3 Skin: warm, dry, well perfused Results & Data Results & Data Vital Signs (Past 12 Hours) Vital Signs Temp Pulse Resp BP Pulse Ox O2 Del Method 02/28/23 05:49 36.5 C 91 H 16 120/73 98 Room Air 02/28/23 03:58 36.4 C L 92 H 16 115/66 97 Room Air 02/27/23 21:30 Room Air 02/27/23 22:58 36.4 C L 93 H 16 105/65 97 Room Air Laboratory Results 02/28/23 02/28/23 Range/Units 06:09 06:09 WBC 83.16 H* (4.8-10.8) K/ul RBC 3.80 L (4.20-5.40) M/uL Hgb 10.8 L (12.0-16.0) g/dl Hct 34.4 L (37.0-47.0) % MCV 90.5 (80.0-100.0) fL MCH 28.4 (25.0-34.0) pg MCHC 31.4 L (32.0-36.0) g/dL RDW Std Deviation 46.9 H (36.4-46.3) fL RDW Coeff of Supriya 14.5 (11.5-14.5) % Plt Count 228 (130-400) K/uL MPV 11.0 (9.4-12.4) fL Sodium 136 (136-145) mmol/L Potassium 5.2 H (3.5-5.1) mmol/L Chloride 104 (98-107) mmol/L Carbon Dioxide 23 (21-32) mmol/L Anion Gap 9 (3-11) BUN 22 (6-23) mg/dl Creatinine 0.81 (0.6-1.2) mg/dl Est Cr Clr Drug Dosing 54.1 ml/min Est GFR ( Amer) 84.1 ml/min Est GFR (Non-Af Amer) 72.6 ml/min BUN/Creatinine Ratio 27.2 H (10-20) Glucose 162 H (70-99(Fasting)) mg/dl Calcium 9.4 (8.6-10.3) mg/dl PG Care Time/CCT Total # of Minutes Spent Total Time Spent with Patient: Total time spent is greater than 50% in coordination of care (as documented) at patient's floor/unit and/or counseling patient: Coding Level of Care Code 00287 SUB INP/OBS CARE 2/35MIN Diagnoses Status post right knee replacement Z96.651 Autoimmune hepatitis K75.4 CLL (chronic lymphocytic leukemia) C91.10 Hyperkalemia E87.5
[2023-02-28] MEDS ORDERED: CHOLECALCIFEROL 1,000 UNITS 25 MCG TAB PO SCH (09:00)
[2023-02-28] MEDS ORDERED: NON-FORMULARY MEDICATION (Potassium 99 mg Tablet) PO SCH (09:00)
[2023-02-28] MEDS ORDERED: MULTIVITAMIN TAB PO SCH (09:00)
[2023-02-28] MEDS ORDERED: CYANOCOBALAMIN (B-12) 2,500 MCG TABLET SL SCH (09:00)
[2023-02-28] MEDS ORDERED: FAMOTIDINE 20 MG TAB PO SCH (09:00)
[2023-02-28] MEDS ORDERED: PYRIDOXINE HCL 50 MG TAB PO SCH (09:00)
[2023-02-28] MEDS: ASPIRIN 81 MG ECTAB PO SCH (09:04)
--- NOTE | 2023-03-05 08:46 | Discharge Summary ---
Date of Service March 05, 2023 Admission HPI Per Admitting Provider 72-year-old female with past medical history significant for CLL who presents with ongoing right knee pain. Pain is interfering with patient's daily activities. She has failed conservative measures and would like to proceed with surgical invention. Patient denies headaches, sweats, fevers, chills, double vision, blurred vision, cough, sore throat, dysphagia, chest pain, sob, wheezing, n/v/d/c, numbness, tingling, fatigue, urinary symptoms, mood disorders. ROS positive for right knee pain and stiffness. Admission Exam Per Admitting Provider Physical Exam Constitutional: well developed and well nourished; no acute distress Eyes: PERRL, conjunctivae normal, anicteric sclerae ENMT: external ear and nose normal, oropharynx normal Neck: trachea midline, no thyromegaly Respiratory: normal respiratory effort, lungs clear to auscultation Cardiovascular: RRR, no murmur, no edema Musculoskeletal: Right knee: Range of motion is 0-120 degrees. There is a valgus alignment. Moderate knee effusion. Tenderness to lateral joint line and lateral patellar facet. Conchita's is guarded. Stable valgus and varus stress test. Skin: no rashes, warm and dry Neurologic: patellar DTR's 2+ bilat, sensation intact Psychiatric: A+Ox3, euthymic affect Principal Diagnosis Right knee osteoarthritis Discharge Data Allergies Allergy/AdvReac Type Severity Reaction Status Date / Time No Known Drug Allergies Allergy Unknown NONE Verified 02/27/23 07:47 Consultations 02/26/23 08:30 Consult Hospitalist Routine Procedures Performed Operation Date: 02/27/23 09:50 Actual Procedures p Right Total Knee Arthroplasty, Lateral Release(Right) - Russell Londono MD Ordered Studies 02/27/23 05:00 US - OR guided needle placemen Routine Hospital Course (1) Primary osteoarthritis of right knee: Patient:DARRICK MAHER Admit Date:02/27/23 MR#:[id number] Att Phy:Russell Londono M.D. Acct ID:[id number] Lissette Phy:Jareth Dunlap M.D. Date:1950 Fam Phy: Age:72 Location:3E Sex:F Room/Bed:E308-1 cc: ~ *NOTICE TO RECEIVING DEMOCRAT/AGENCY This information is strictly Confidential and protected under [place] law. [place] law prohibits you from making any further disclosure of this information unless further disclosure is expressly permitted by the written consent of the person to whom it pertains or is authorized by law. A general authorization for the release of medical or other information is not sufficient for this purpose. Hospital accepts no responsibility if the information is made available to any other person, INCLUDING THE PATIENT. Date of Service February 28, 2023 Assessment & Plan (1) Primary osteoarthritis of right knee: Plan: Postop day 1 status post right total knee arthroplasty. PT/OT protocols. Weightbearing as tolerated. DVT prophylaxis-aspirin p.o. twice daily, SCDs, LULU ta. Pain management as written. A.m. labs pending DC planning-patient is planning for outpatient PT upon discharge. Admission and Anticipated Discharge Date Admission Date: February 27, 2023 Subjective Postop day 1 Patient sitting in chair at the bedside. No complaints this morning. Pain is controlled. She denies any shortness of breath, chest pain, lightheadedness. She is hoping to go home today. Physical Exam Physical Exam: Dressings are clean, dry, and intact. Calves are soft nontender. Neurovascular is intact. Toes are mobile. She has good dorsiflexion and plantarflexion of the right foot. Hemovac drainage is minimal Results & Data Vital Signs (Past 12 Hours) Vital Signs Temp Pulse Resp BP Pulse Ox O2 Del Method 02/28/23 05:49 36.5 C 91 H 16 120/73 98 Room Air 02/28/23 03:58 36.4 C L 92 H 16 115/66 97 Room Air 02/27/23 21:30 A Room Air 02/27/23 22:58 36.4 C L 93 H 16 105/65 97 Room Air 02/27/23 20:01 36.5 C 97 H 16 126/75 96 Room Air Signed By: <Electronically signed by Germán Ward M.D.> 02/28/23 1318 <Electronically signed by Zion Gardner PA-C> 02/28/23 0631 Created:02/28/23 0629 The status of this report isSigned. Draft = Not yet reviewed or approved by Medical Physician. Signed = Reviewed and approved by Medical Physician. Total Time Total Time Spent Total Time Spent (In Minutes): 5 Discharge Plan Discharge Items Patient Disposition: Home - Self-Care Reason For Visit: Right KneE OSteoarthritis Discharge Diagnosis: Right knee osteoarthritis Activity: Per Instructions section Weightbearing: Right weightbearing Weightbearing Comment: as tolerated with walker Non-emergency contact: Surgeon Call non-emergency contact if: you have any medication questions, your pain is not controlled, your temperature is above 101.5, your wound has increased redness and your wound has increased drainage Follow-up/Referrals: Russell Londono MD [Surgeon] - (Follow up with Dr Londono or his PA in 2 weeks from the day of surgery for your first post operative visit.) PCP,NO [Physician] - Diet: Regular Addtl Attending Provider Instructions: ACTIVITY RECOMMENDATIONS: SELF CARE INSTRUCTIONS AFTER TOTAL KNEE REPLACEMENT A. You may need to continue a physical therapy program after discharge from the hospital. There are several options available to you. Your doctor will assist you in selecting the best one for you. 1. An out-patient facility 2 to 3 times a week for therapy or home therapy. 2. Continue working on all exercises taught to you in the hospital. Your goals should be to increase bending of your knee to 90 degrees and beyond and to fully straighten your knee. B. You may progress at your own pace from walking with a walker or crutches to a cane; then to no assistive devices. C. Make walking a part of your daily routine. Be up as much as comfortable with rest periods throughout the day. Rest with leg elevation is very important. Use the ice wrap frequently for the first 3-4 weeks. D. There are no restrictions on activities. You may ride in a car, shop, participate in eggs inspector and all social activities. E. Wear the long elastic stockings (LULU hose) 20 hours a day for 2 weeks after surgery. They can be removed several times a day for laundering and for a bath. F. You may shower, no tub baths until cleared by your doctor. SPECIAL CARE INSTRUCTIONS: VERY IMPORTANT TO READ AND REVIEW A. There are a few signs you need to watch for after you are home. Call [facility] if you notice any of the followin. Increased severe knee pain. Some pain is expected especially when you exercise. 2. Increased swelling in your leg or knee; pain or swelling of the calf muscle in either lower leg. 3. Any fluid drainage from the incision. 4. Shortness of breath or chest pain. B. Please call [facility] at if you have any concerns or questions about your operation or recovery. The doctor or his nurse will return your call promptly. C. You must take antibiotics before dental work, bladder, bowel or other surge ry. Your doctor will provide you with a permanent care to carry describing this precaution. IMPORTANT: * REMEMBER TO TAKE ASPIRIN, 81 MG, TWICE DAILY FOR 4 WEEKS UNLESS OTHERWISE DIRECTED. THIS IS YOUR BLOOD THINNER. * HIGH RISK PATIENTS MAY BE PRESCRIBED A STRONGER BLOOD THINNER. THIS WILL BE PROVIDED AT DISCHARGE. * CALL IF INCREASED PAIN, REDNESS, DRAINAGE OR FEVER GREATER THAT 101. * WEAR LULU HOSE 20 HOURS PER DAY FOR 2 WEEKS. * Shamika Dressing - This is a large suction dressing covering your incision. This will help pull any excess drainage from the wound and allow your incision to heal properly. You may shower with this if you can keep the unit outside of the shower. If any bleeding or leakage is noted please call your doctor's office. This will remain on your incision for 7 days and then should be removed. This can be done yourself or by the home nursing staff if applicable. The entire unit is disposable once removed. Once removed, keep incision clean and dry. If redness or drainage is noted, please call your surgeon. . FOLLOW UP VISIT: If appointment is not already scheduled: Please call [facility] to make a follow-up appointment for 2 weeks after your surgery at . Stand-Alone Forms: My [address], Smoking Cessation Medications and DC Order Prescriptions: New acetaminophen [Tylenol Extra Strength] 500 mg Tablet 1,000 mg PO Q8 14 Days Qty: 84 0RF aspirin 81 mg Tablet,Delayed Release (Dr/Ec) 81 mg PO BID 30 Days Qty: 60 0RF polyethylene glycol 3350 [Miralax] 17 gram powder in packet 17 g PO DAILY PRN (Reason: constipation) Qty: 5 0RF oxycodone 5 mg tablet 5 mg PO Q4H MDD 6 PRN (Reason: pain) Qty: 30 0RF Continued celecoxib [Celebrex] 100 mg Capsule 100 mg PO BID cyanocobalamin (vitamin B-12) [Vitamin B-12] 2,500 mcg Tablet, Sublingual 2,500 mcg SUBLINGUAL QAM pyridoxine (vitamin B6) [Vitamin B-6] 100 mg Tablet 100 mg PO QAM cholecalciferol (vitamin D3) [Vitamin D3] 25 mcg (1,000 unit) Tablet 25 mcg PO QAM calcium carb-D3-mag ox-zinc ox 333 mg-133 unit -133 mg-5 mg Tablet 3 tab PO HS Held azathioprine [Imuran] 50 mg Tablet 50 mg PO QAM Hold Instructions: Resume your Imuran in 2 weeks. Discontinued potassium 99 mg Tablet 99 mg PO QAM aspirin 81 mg Capsule 81 mg PO QAM Discharge Orders: Discharge Order (Routine); Ordered 02/28/23 Ordered By: Zion Meyer/Other Patient Handouts: Knee Osteoarthritis Admission Data Admit Date/Time: 02/27/23 12:34 Attending Provider: Russell Londono Admit Provider: Russell Londono Primary Care Provider: Jareth Dunlap Other Providers: Antwon Freire Jonathan M. Other Interventions: Discharge Summary Assessment (RN) Last Done: 02/28/23 10:36
== END 2023-02-28 11:20 | disposition home or self-care (01) ==
LOC: 3E 07:07 → ASU 07:07
DX: M17.11 Unilateral primary osteoarthritis, right knee; K75.4 Autoimmune hepatitis; Z79.899 Other long term (current) drug therapy; Z79.82 Long term (current) use of aspirin; C91.11 Chronic lymphocytic leukemia of B-cell type in remission; E87.5 Hyperkalemia